=== PATIENT | female | born 1990 | race Caucasian/White ===

== ENCOUNTER 2018-08-17 22:10 | Emergency (ER) | payer MEDICAID ==
[~2018-08-17] VITALS: Ht 170.2 cm; Wt 70.3 kg
[2018-08-17 22:16] VITALS: Ht 170.2 cm; Wt 70.3 kg
--- NOTE | 2018-08-17 22:20 | NUR ---
PT BIBA FOR ALOC. 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 PER MEDIC PT WAS OUT SHOPPING WITH A FRIEND AND WENT INTO A DRESSING ROOM AND FOR 1 HOUR, THERE WAS SNORING HEARD FROM OUTSIDE OF THE PTS DRESSING ROOM, THE STAFF AT THE RETAIL STORE THEN CONTACTED 911. PER AUTOMATIC FOLDER SEAMER WHEN THEY OPENED THE DRESSING ROOM DOOR THE PT FELL OUT OF THE ROOM IF SHE WAS LEANING AGAINST THE DOOR OF THE DRESSING ROOM FOR " A WHILE". PT WAS AT A [facility] OF 3. PER MEDIC THEY GAVE NARCAN 2 MG NASAL AND THERE WAS LITTLE AROUSAL FROM THE PT, BLOOD SUGAR WAS 70, ONCE IV LINE WAS ESTABLISHED MEDIC GAVE NARCAN 1MG IVP ALONG WITH D10. PT THEN ARRIVED TO ED DIAPHERETIC, ALTERED AND VERY AGITATED. PT CONTINUES TO CONVULSE AND MOVE EXTREMITIES AROUND IN GURNEY, THRASHING. PT PUPILS ARE PINPOINT. PTS SKIN IS WET TO TOUCH BUT INTACT. PT HAS A GAG REFLEX PRESENT. DR OSCAR AT BEDSIDE FOR MSE
--- NOTE | 2018-08-17 22:25 | NUR ---
PT PLACED IN FOUR POINT RESTRAINT DUE TO PT NOT BEING COOPERATIVE AND CAN HARM HERSELF. PT IS ALTERED AND IS NOT RESPONDING TO ANY STIMULI. PT HAS GAG REFLEX. PT CONTINUES TO BE DIAPHERETIC AT THIS TIME.
--- NOTE | 2018-08-17 22:35 | NUR ---
SEIZURE PADS PLACED ON GURNEY FOR PTS PROTECTION. PT CONTINUES TO THRASH AROUND IN GURNEY AND MOVE ALL EXTREMEITIES. +PMSC OF ALL EXTREMITIES NOTED
[2018-08-17 22:47] LABS: BASOPHIL % 0.7 % (0-2); PLATELET COUNT 270 x10^3mcL (130-400); RED CELL DISTRIBUTION WIDTH 12.7 % (11.5-14.5)
[2018-08-17 22:57] LABS: CALCIUM 9.1 mg/dL (8.5-10.1); CARBON DIOXIDE 28.8 mmol/L (21-32); CHLORIDE SERUM 103 mmol/L (98-107); CREATININE SERUM 0.8 mg/dL (0.6-1.0); GFR1 > 60 mL/min; GLUCOSE SERUM 112 mg/dL (74-106); POTASSIUM SERUM 4.1 mmol/L (3.5-5.1); SODIUM SERUM 141 mmol/L (136-145)
[2018-08-17 23:07] LABS: ALBUMIN 3.6 g/dL (3.4-5.0); ALKALINE PHOSPHATASE 64 U/L (46-116); ALT/SGPT 16 U/L (14-59); AST/SGOT 14 U/L (15-37); BILIRUBIN TOTAL 1.68 mg/dL (0.20-1.00); TOTAL PROTEIN, SERUM 7.2 g/dL (6.4-8.2)
[2018-08-17 23:09] LABS: CHOLESTEROL 120 mg/dL (<200)
--- NOTE | 2018-08-17 23:24 | NUR ---
PT CONTINUES TO THRASH AROUND IN [place]. PT IS IN FOUR POINT RESTRAINT FOR OWN PROTECTION. PTS [facility] IS IN LOWEST SETTING. ALL HAZARDOUS OBJECTS ARE REMOVED FROM ROOM. PT IS WITHIN SIGHT OF NURSES STATION. WILL CONTINUE TO MONITOR CLOSELY.
[2018-08-17 23:28] LABS: microscopic required? YES; urine erythrocyte TRACE (NEGATIVE)
--- NOTE | 2018-08-17 23:29 | NUR ---
PORTABLE XRAY AT BEDSIDE
[2018-08-17 23:44] LABS: AMPHETAMINE QUAL UR POSITIVE (See below)
--- NOTE | 2018-08-17 23:47 | NUR ---
PT TAKEN TO CT VIA MORENITA GUARDADO BY TECH
--- NOTE | 2018-08-18 00:30 | NUR ---
JIMÉNEZ CATHETHER PLACED BY , ALFONSO ORDAZ, WITH ASSISTNACE FROM [facility].
--- NOTE | 2018-08-18 00:41 | NUR ---
PT RESTING IN ED GURNEY AT THIS TIME. ALL RESTRAINTS HAVE BEEN REMOVED FROM PT. +PMSC. PT RESPS ARE E/U. VISIBLE LORENA CHEST RISE AND FALL NOTED. PT RESPONDS TO PAINFUL STIMULI. PT IS PLACED ON ALL MONITORS. PT GURNEY IN PLOWEST POSITION. NO ACD NOTED
--- NOTE | 2018-08-18 01:30 | NUR ---
PT IS AWAKE. PT IS ANSWERING QUESTIONS APPROPRIATELY. PT STILL SEEMS SLEEPY BUT IS A/O X4. PT RESPS ARE E/U. LORENA CHEST RISE AND FALL NOTED. PT IS OFF RESTRAINTS AND IS COOPERATIVE. NO ACD NOTED
--- NOTE | 2018-08-18 02:30 | NUR ---
PORTABLE XRAY AT BEDSIDE
--- NOTE | 2018-08-18 04:58 | NUR ---
1000 CC OF URINE OUTPUT
--- NOTE | 2018-08-18 04:59 | NUR ---
PT LAYING IN ED GURNEY. PT IS AWAKE AND TALKING IN 7-8 WORD SENTENCES. PT REPORTS THAT SHE IS SLEEPY. VISIBLE LORENA CHEST RISE AND FALL NOTED.
[2018-08-18 05:02] VITALS: BP 96/66
--- NOTE | 2018-08-18 05:26 | NUR ---
GAVE PT REPORT TO LV ORDAZ TO ASSUME PRIMARY CARE OF PT ON TELE FLOOR ROOM 222B
--- NOTE | 2018-08-18 05:43 | NUR ---
PT NOW STATES SHE DOESNT WANT TO STAY IN THE HOSPITAL. DR OSCAR MADE AWARE, WANTS TO ROAD TEST THE PT AND HAVE HER CALL FAMILY FOR A SAFE RIDE HOME
[2018-08-18 05:50] LABS: MAGNESIUM 2.2 mg/dL (1.8-2.4); PHOSPHOROUS 4.2 mg/dL (2.5-4.9)
[2018-08-18 05:59] LABS: T3 TOTAL 1.47 ng/mL
[2018-08-18 06:02] LABS: FREE T4 1.18 ng/dL (0.76-1.46); FREE THYROXINE INDEX 2.9 ug/dL (1.4-4.5)
--- NOTE | 2018-08-18 06:30 | NUR ---
PT WAS ROAD TESTED. PT IS ABLE TO AMBULATE WITH [facility] FROM [facility]. PT HAS BEEN TOLD SHE NEEDS TO HAVE A SAFE RIDE HOME FROM A FAMILY MEMBER OR FRIEND. PT VERBALIZED UNDERSTANDING.
--- NOTE | 2018-08-18 07:08 | NUR ---
PT DISCHARGE HOME. PT VERBALIZED FINDING A SAFE RIDE HOME. PT IS A/O X4. PT RESPS ARE E/U. PT WAS EDUCATED ON RX OF KEFLEX AND DIPRIVAN. PT VERBALIZED UNDERSTANDING OF INSTRUCTIONS. PT WAS ABLE TO AMBULATE WITH [facility]AD[facility] GAIT OUT OF THE ED.
== END 2018-08-18 07:23 | disposition home or self-care (01) ==
LOC: EDBD 22:10 → ED 22:10 → DU 08-18 04:33 → ED 08-18 07:23
PROVIDERS: Internal Medicine; Specialist
DX: R41.82 Altered mental status, unspecified (principal); F19.10 Other psychoactive substance abuse, uncomplicated
CPT/HCPCS: 36600; 82962; 84439; G0480; J0696; J2310; J3490; J7030; J7060; Q0092